=== PATIENT | female | born 1995 | race Caucasian/White ===

== ENCOUNTER → 2022-04-14 | Outpatient (CLI) | payer BC, SELFPAY ==
--- NOTE | 2022-04-14 | IMM_PTH ---
PATIENT: ZACHARIAH RALPH LOC: [facility] U#:[id number] AGE/SX: 26/F ROOM: RE04/14/[address]: Dr. Imer Munguia MD : 1995 BED: DIS: 04/14/2022 SPEC #: [id number] RECD: 04/16/22 10:17 STATUS: SESAR MIRANDA #: [id number] ROXANNE: 04/14/22 00:[address]: Imer Munguia DEPT: IMMUNOHISTOCHEMISTRY RECD BY: Nadine Li Tissues: Skin of lip, NOS Procedures: SMA (add) CD34 (add) DESMIN (add) KI-67 (add) MACRO (add) P53 (add) Vimentin (add) SMM (add) Pankeratin (initial) MELAN-A (add) S-100 (add) PHYSICIAN & INSTITUTION [place] [id number] SPECIMEN INFORMATION: Tissue Source: Left lower lip lesion Clinical Info: Neoplasm Specimen Number: [id number] CPT code: 08486, 13500 x10 METHODOLOGY: Deparaffinized sections of prefer/formalin-fixed tissue or PAP/DQ stained slides are incubated with monoclonal/polyclonal antibodies/oligonucleotide probes. Localization is made via biotin free immunoperoxidase method. Appropriate controls are performed and reacted as expected. Results on target cell population are indicated in the following table: RESULTS: ANTIBODY / CLONE RESULT AE1-3 (AE1/AE3/PCK26) negative Vimentin (V9) positive CD34 (QBEnd-10) positive Macro (HAM-56) negative Actin (1A4) negative Myosin (simms1) negative Desmin (CE-R-11) negative Melan A (A103) negative S-100 (4C4.9) negative P53 (DO-7) negative Ki-67 (30-9) negative These tests were developed and their performance characteristics determined by [facility]. They may not have been cleared or approved by the [place]. Food and Drug Administration. The FDA has determined that such clearance or approval is not necessary. The above immunohistochemical/dualISH markers are ordered and reviewed by the Pathologist. INTERPRETATION: Lesion of left lip, biopsy: Consistent with fibroma. AM:conor 04/19/2022
--- NOTE | 2022-04-14 | LES_PTH ---
PATIENT: ZACHARIAH RALPH LOC: [facility] U#:[id number] AGE/SX: 26/F ROOM: RE04/14/[address]: Dr. Imer Munguia MD : 1995 BED: DIS: 04/14/2022 SPEC #: [id number] RECD: 04/15/22 09:36 STATUS: SESAR RUBEN #: [id number] ROXANNE: 04/14/22 00:[address]: Imer Munguia DEPT: SURGICAL PATHOLOGY RECD BY: Tim Conte ENTERED: 04/15/22 09:36 SP TYPE: Lesion OTHR DR: NADIA Tissues: Skin of lip, NOS Procedures: Surgery Specimen Level IV HEADER OPERATION: Excision left lower lip lesion PRE-OP DIAGNOSIS: Neoplasm TISSUE SUBMITTED: Left lip lesion MICROSCOPIC DIAGNOSIS Lesion of left lip, biopsy: Consistent with fibroma. See comment. AM:conor 04/16/2022 COMMENT Immunohistochemistry ([id number]) supports the above diagnosis. MICROSCOPIC DESCRIPTION Slides are reviewed. GROSS DESCRIPTION Received in fixative is one container labeled with the patient's name and designated left lower lip lesion. The specimen consists of a raisinoid fragment of meade tissue measuring 1 x 1 x 0.8 cm. The presumed margin is inked. The specimen is sectioned and totally submitted in one cassette. / AM:conor 04/15/2022 TC:1 CPT: 93822
== END | disposition home or self-care (01) ==
LOC: LABSPEC 15:29
PROVIDERS: Visit Provider Otolaryngology
DX: K13.0 Diseases of lips (principal)
CPT/HCPCS: 88305; 88341; 88342